=== PATIENT | male | born 1990 | race Asian ===

== ENCOUNTER 2016-08-08 21:08 | Emergency (ER) | payer BC ==
[~2016-08-08] VITALS: Ht 188 cm; Wt 181.4 kg
[2016-08-08 21:40] LABS: PLATELET COUNT 332 K/uL (142-355)
[2016-08-08 23:04] VITALS: BP 1783/11; TEMP 98.7
== END 2016-08-08 23:08 | disposition home or self-care (01) ==
LOC: ED 21:08
DX: L60.0 Ingrowing nail (principal); L03.031 Cellulitis of right toe
CPT/HCPCS: 85027; 99282; J0696

== ENCOUNTER 2016-10-17 08:44 | Emergency (ER) | payer BC ==
[~2016-10-17] VITALS: Ht 185.4 cm; Wt 142.9 kg
[2016-10-17 08:48] VITALS: TEMP 98.5
[2016-10-17] MEDS ORDERED: LISI10TA11 PO (08:58)
[2016-10-17 09:29] LABS: PLATELET COUNT 331 K/uL (142-355)
[2016-10-17 10:24] VITALS: BP 162/112
== END 2016-10-17 10:25 | disposition home or self-care (01) ==
LOC: ED 08:44
DX: J32.9 Chronic sinusitis, unspecified (principal); I10 Essential (primary) hypertension
CPT/HCPCS: 36415; 85027; 87081; 87880; 99283

== ENCOUNTER 2020-01-05 02:06 | Emergency (ER) | payer OTHER ==
[~2020-01-05] VITALS: Ht 188 cm; Wt 158.8 kg
[~2020-01-05 02:06] MED LIST: LISI10TA11 PO
[2020-01-05 04:14] VITALS: BP 160/117; TEMP 98.6
== END 2020-01-05 04:14 | disposition home or self-care (01) ==
LOC: ED 02:06
DX: J01.80 Other acute sinusitis (principal); J40 Bronchitis, not specified as acute or chronic; Z20.828 Contact with and (suspected) exposure to other viral communicable diseases
CPT/HCPCS: 87502; 87635; 87651; 99283; U0003

== ENCOUNTER 2021-07-04 16:35 | Emergency (ER) | payer BC ==
[~2021-07-04] VITALS: Ht 188 cm; Wt 158.8 kg
[2021-07-04 16:39] VITALS: TEMP 97.8
[2021-07-04] MEDS ORDERED: CYCLOBENZAPRINE10 MG PO (17:18)
[2021-07-04 17:42] VITALS: BP 165/91
== END 2021-07-04 17:43 | disposition home or self-care (01) ==
LOC: ED 16:35
DX: S40.022A Contusion of left upper arm, initial encounter (principal); S40.021A Contusion of right upper arm, initial encounter; X50.9XXA Other and unspecified overexertion or strenuous movements or postures, initial encounter; Y92.89 Other specified places as the place of occurrence of the external cause
CPT/HCPCS: 96372; 99282; J1885